=== PATIENT | male | born 1950 | race Caucasian/White ===

== ENCOUNTER 2021-12-21 14:45 | Emergency (ER) | payer MEDICARE, OTHER ==
[~2021-12-21] VITALS: Ht 172.7 cm; Wt 76.7 kg
[~2021-12-21 14:45] MED LIST: AVODART PO; IRON PO; MAGN400T8 PO; PANT40TA49 PO; PRIM50TA PO; ROSU5TAB PO; TAMS-3 PO; VENL150C2 PO
[2021-12-21] MEDS ORDERED: METF-442 PO (14:57)
--- NOTE | 2021-12-21 15:25 | NUR ---
at bedside to examine pt.
--- NOTE | 2021-12-21 15:47 | NUR ---
Pt's ear waxed removed by via irrigation and flush with NS, large chunks of stoned waxed removed from bilateral ears.
--- NOTE | 2021-12-21 15:54 | NUR ---
DCD instructions given to pt. and who remains at bedside., P. left room [id number]. ambulatory steady gait.
== END 2021-12-21 16:02 | disposition home or self-care (01) ==
LOC: ER 14:45
DX: H61.23 Impacted cerumen, bilateral (principal); E11.9 Type 2 diabetes mellitus without complications; Z79.84 Long term (current) use of oral hypoglycemic drugs; E78.5 Hyperlipidemia, unspecified; N40.0 Benign prostatic hyperplasia without lower urinary tract symptoms; Z79.899 Other long term (current) drug therapy; I25.2 Old myocardial infarction; I10 Essential (primary) hypertension
CPT/HCPCS: A4217; A4663

== ENCOUNTER 2022-11-12 14:12 | Inpatient (IN) | payer MEDICARE, OTHER ==
[~2022-11-12] VITALS: Ht 172.7 cm; Wt 73.5 kg
[~2022-11-12 14:12] MED LIST changes: -IRON PO; -MAGN400T8 PO; +METF-442 PO
[2022-11-12] MEDS ORDERED: ATEN25TA PO (14:44)
[2022-11-12] MEDS ORDERED: TIMO5SOL11 EACHEYE (14:44)
[2022-11-12] MEDS ORDERED: LAMO25TA10 PO (14:44)
[2022-11-12] MEDS ORDERED: LATA2.5D15 EACHEYE (14:44)
[2022-11-12] MEDS ORDERED: DUTA0.5C PO (14:44)
[2022-11-12] MEDS ORDERED: OLAN2.5T3 PO (14:44)
[2022-11-12] MEDS ORDERED: BENA20TA9 PO (14:44)
[2022-11-12] MEDS ORDERED: BUPR-53 PO (14:44)
[2022-11-12] MEDS ORDERED: CLOP75TA15 PO (14:44)
[2022-11-12] MEDS ORDERED: IV NORMAL SALINE 500 ML BAG IV ONE (14:45)
[2022-11-12 14:46] LABS: *BILIRUBIN,URIN NEGATIVE (NEGATIVE); *CLARITY,URINE CLEAR (CLEAR); *COLOR,URINE YELLOW (YELLOW); *KETONES,URINE NEGATIVE (NEGATIVE); *UROBILINOGEN,URINE 0.2 E.U./dl (NORMAL); LEUKOCYTE ESTERASE ,URINE NEGATIVE (NEGATIVE); NITRITE, URINE NEGATIVE (NEGATIVE); PH,URINE 5.5 (5.0-8.0); UGLUCOSE NEGATIVE (NEGATIVE)
[2022-11-12 15:01] LABS: HEMATOCRIT 39.5 % (36.7-47.1); MEAN CORPUSCULAR HEMOGLOBIN 24.8 uug (23.8-33.4); MEAN CORPUSCULAR VOLUME 77.4 fL (73.0-96.2); PLATELET COUNT (AUTO) 299 K/uL (152-348)
[2022-11-12 15:08] LABS: *BLOOD, URINE TRACE (NEGATIVE)
--- NOTE | 2022-11-12 15:10 | NUR ---
Pt's now stated pt tested postive for COVID-19 yesterday. Pt is in room 4A, started isolation precautioins per protocol, collected specimen for COVID and sent to lab.
[2022-11-12 15:12] LABS: ALANINE AMINOTRANSFERASE 36 U/L (16-63); ALKALINE PHOSPHATASE 74 U/L (50-136); BILIRUBIN,DIRECT 0.2 mg/dL (0.0-0.2); BILIRUBIN,TOTAL 0.4 mg/dL (0.2-1.0); CARBON DIOXIDE 24 mmol/L (21-32); CHLORIDE 99 mmol/L (98-107); CREATININE 1.6 mg/dL (0.6-1.3); GLUCOSE 84 mg/dL (74-106); POTASSIUM 4.1 mmol/L (3.5-5.1); UREA NITROGEN, BLOOD 27 mg/dL (7-18)
[2022-11-12 15:31] LABS: ASPARTATE AMINOTRANSFERASE 33 U/L (15-37); TOTAL PROTEIN, SERUM 7.9 g/dL (6.4-8.2)
--- NOTE | 2022-11-12 16:25 | NUR ---
Pt to be admitted to Tele, called for bed assignment. Pt resting in [facility] with NAD noted.
--- NOTE | 2022-11-12 17:00 | NUR ---
Pt. admitted to M/S , under care of Jordyn Thompson. Dx: Dehydration, COVID-19 Room changed to 322 Assigned nurse to call back for report
[2022-11-12] MEDS ORDERED: ONDANSETRON 4 MG/2 ML VIAL IV PRN (17:15)
[2022-11-12] MEDS ORDERED: INSULIN REGULAR, HUMAN 300 UNIT/3 ML VIAL SQ PRN (17:15)
[2022-11-12] MEDS ORDERED: ACETAMINOPHEN 325 MG TABLET PO PRN (17:15)
[2022-11-12] MEDS ORDERED: INSULIN REGULAR, HUMAN 300 UNITS/3 ML VIAL SQ PRN (17:15)
[2022-11-12] MEDS ORDERED: DEXTROSE 50% 50 ML DISP.SYRIN IV PRN (17:15)
--- NOTE | 2022-11-12 17:27 | NUR ---
Attempted to call report, nurse busy, to call back. Pt resting with NAD noted.
--- NOTE | 2022-11-12 18:00 | NUR ---
Pt trans to m/s floor room 322, NAD noted. Charge nurse aware of pt arrival, assigned nurse to call ER for report when ready.
[2022-11-12 18:14] VITALS: BP 126/63
--- NOTE | 2022-11-12 18:25 | NUR ---
PATIENT RECEIVED ON FLOOR. ALERT AND ABLE TO MAKE NEEDS KNOWN. DENIES PAIN. ORIENTED TTOROOM AND CALL [facility]. PATIENT IN COVID ISOLATION. NO DISCOMFORT NOTED. SIENA Stevens RN
[2022-11-12] MEDS ORDERED: TIMO5DRO18 EACHEYE (18:28)
[2022-11-12] MEDS ORDERED: BUPR-319 PO (18:30)
[2022-11-12] MEDS ORDERED: IV NS 1000 ML 1,000 ML IV ONE (18:45)
[2022-11-12 18:58] LABS: BACTERIA,URINE NONE SEEN /HPF (NONE SEEN); MUCUS,URINE FEW /LPF (0-FEW); SQUAMOUS EPITHELIAL CELL,UR FEW /HPF (NONE SEEN); WBC,URINE 0-3 /HPF (0-3)
[2022-11-12 20:00] VITALS: BP 140/77
[2022-11-12] MEDS: LATANOPROST OPHT DROP 2.5 ML BOTTLE EACHEYE SCH (21:07)
[2022-11-12] MEDS: PRIMIDONE 50 MG TABLET PO SCH (21:07)
[2022-11-12] MEDS: ATENOLOL 25 MG TABLET PO SCH (21:08)
[2022-11-12] MEDS: BLOOD SUGAR DIAGNOSTIC 1 EACH STRIP VI SCH (21:09)
[2022-11-12] MEDS: ATORVASTATIN 10 MG TABLET PO SCH (21:09)
--- NOTE | 2022-11-12 23:58 | NUR ---
PATIENT HAD NOT EATEN SINCE 0900, BS AT 2100 WAS 69, PATIENT ATE DINNER, BS WAS RE CHECK AND INCREASED TO 78.
[2022-11-13 04:00] VITALS: BP 130/58
--- NOTE | 2022-11-13 04:26 | NUR ---
LACTATE ACID RESULTS WERE 3.2, FELECIA HUERTA MADE AWARE NEW ORDER GIVEN TO RE CHECK LACTATE IN AM, BLOOD WORK SET FOR 0700
[2022-11-13] MEDS: PANTOPRAZOLE SODIUM 40 MG TABLET.DR PO SCH (06:08)
[2022-11-13 07:30] LABS: ALANINE AMINOTRANSFERASE 35 U/L (16-63); ALKALINE PHOSPHATASE 63 U/L (50-136); ASPARTATE AMINOTRANSFERASE 26 U/L (15-37); BILIRUBIN,TOTAL 0.4 mg/dL (0.2-1.0); CARBON DIOXIDE 28 mmol/L (21-32); CHLORIDE 99 mmol/L (98-107); CREATININE 1.4 mg/dL (0.6-1.3); GLUCOSE 100 mg/dL (74-106); MAGNESIUM 1.6 mg/dL (1.8-2.4); PHOSPHOROUS 3.4 mg/dL (2.5-4.9); POTASSIUM 4.2 mmol/L (3.5-5.1); TOTAL PROTEIN, SERUM 7.2 g/dL (6.4-8.2); UREA NITROGEN, BLOOD 28 mg/dL (7-18)
[2022-11-13 07:38] LABS: HEMATOCRIT 37.6 % (36.7-47.1); MEAN CORPUSCULAR HEMOGLOBIN 24.7 uug (23.8-33.4); MEAN CORPUSCULAR VOLUME 76.6 fL (73.0-96.2); PLATELET COUNT (AUTO) 261 K/uL (152-348)
[2022-11-13] MEDS: BLOOD SUGAR DIAGNOSTIC 1 EACH STRIP VI SCH ×4 (07:49→20:40)
[2022-11-13 08:46] LABS: THYROID STIMULATING HORMONE 2.491 mIU/mL (0.358-3.740)
[2022-11-13] MEDS ORDERED: TAMSULOSIN HCL 0.4 MG CAP.SR.24H PO SCH (09:00)
[2022-11-13] MEDS ORDERED: TIMOLOL MALEATE XE 0.5% OPHT 5 ML BOTTLE EACHEYE SCH (09:00)
[2022-11-13] MEDS: LAMOTRIGINE 25 MG TABLET PO SCH ×2 (09:04→17:08)
[2022-11-13] MEDS: CLOPIDOGREL 75 MG TABLET PO SCH (09:04)
[2022-11-13] MEDS: DUTASTERIDE 0.5 MG CAPSULE PO SCH (09:04)
[2022-11-13] MEDS: BENAZEPRIL HCL 20 MG TABLET PO SCH (09:05)
[2022-11-13] MEDS: METFORMIN HCL 500 MG TABLET PO SCH ×2 (09:05→17:13)
[2022-11-13] MEDS: TIMOLOL MALEATE 0.5% OPHT DROP 5 ML BOTTLE EACHEYE SCH (09:06)
[2022-11-13] MEDS: VENLAFAXINE XR 150 MG CAP.SR.24H PO SCH (09:06)
--- NOTE | 2022-11-13 09:30 | NUR ---
DR NEIL HERE AND SEEN PATIENT WITH NEW ORDERS AND NOTED
[2022-11-13] MEDS: ATENOLOL 25 MG TABLET PO SCH ×2 (09:54→20:24)
[2022-11-13] MEDS ORDERED: MAGNESIUM OXIDE 400 MG TABLET PO ONE (10:30)
--- NOTE | 2022-11-13 10:30 | NUR ---
MAGNESIUM LEVEL IS 1.6 WITH NEW REPLACEMENT ORDERS AND NOTED.
[2022-11-13 11:46] VITALS: BP 140/81
--- NOTE | 2022-11-13 12:40 | NUR ---
BLOOD SUGAR IS 68 AT THIS TIME HE IS SITTING ON HIS BED TALKING ON THE PHONE TO HIS FAMILY SKIN IS WARM AND DRY OFFERED ORANGE JUICE AND HE DRANK 3 OZ LUNCH SERVED AND HE IS EATING WILL CONTINUE TO OBSERVE.
[2022-11-13 16:35] VITALS: BP 122/65
[2022-11-13] MEDS: OLANZAPINE 2.5 MG TABLET PO SCH (17:08)
--- NOTE | 2022-11-13 17:18 | NUR ---
PATIENT PULLED OUT HIS HEPLOCK RIGHT AC DESPITE THE FACT THAT ITS WRAPPED WHEN ASKED WHAT HAPPENED STATED THAT HE DID NOT KNOW WHO REMOVED IT PATIENT IS MIXED UP STATED DOES NOT NEED ONE.HE DOES NOT HAVE IV DRUGS SO WILL HOLD OFF ON REINSERTING HE MIGHT PULL OUT AGAIN WILL ENDORSE.
--- NOTE | 2022-11-13 17:20 | NUR ---
REMAIN ON CONTACT ISOLATION AND PRECAUTION FOR COVID 19 PATIENT IS ON ROOM AIR NO COUGH EPISODES AFEBRILE AT THIS TIME COMPLIANT WITH ALL HIS MEDICATIONS WILL CONTINUE TO OBSERVE.
--- NOTE | 2022-11-13 19:40 | NUR ---
Received Pt from Day shift. Pt is A&Ox3 and is cooperative. Pt on Rm Air. Pt has no IV site due to him pulling out the IV. Safety measures in place. Will continue to monitor.
[2022-11-13 20:00] VITALS: BP 92/59
[2022-11-13] MEDS: PRIMIDONE 50 MG TABLET PO SCH (20:29)
[2022-11-13] MEDS: ATORVASTATIN 10 MG TABLET PO SCH (20:29)
[2022-11-13] MEDS: LATANOPROST OPHT DROP 2.5 ML BOTTLE EACHEYE SCH (20:30)
--- NOTE | 2022-11-13 21:44 | NUR ---
Did not administer atenolol as BP was 92/59. Safety measures in place. Will continue to monitor.
[2022-11-14 04:00] VITALS: BP 117/74
[2022-11-14] MEDS: PANTOPRAZOLE SODIUM 40 MG TABLET.DR PO SCH (06:23)
[2022-11-14 06:57] LABS: HEMATOCRIT 38.7 % (36.7-47.1); MEAN CORPUSCULAR HEMOGLOBIN 24.7 uug (23.8-33.4); MEAN CORPUSCULAR VOLUME 76.9 fL (73.0-96.2); PLATELET COUNT (AUTO) 278 K/uL (152-348)
--- NOTE | 2022-11-14 06:58 | NUR ---
End of shift Note: Pt is A&Ox3 and is cooperative. Pt on Rm Air. Pt has no IV site due to him pulling out the IV. Safety measures in place. Will continue to monitor.
[2022-11-14 07:23] LABS: ALANINE AMINOTRANSFERASE 32 U/L (16-63); ALKALINE PHOSPHATASE 71 U/L (50-136); ASPARTATE AMINOTRANSFERASE 17 U/L (15-37); BILIRUBIN,TOTAL 0.4 mg/dL (0.2-1.0); CARBON DIOXIDE 28 mmol/L (21-32); CHLORIDE 100 mmol/L (98-107); CREATININE 1.4 mg/dL (0.6-1.3); GLUCOSE 100 mg/dL (74-106); MAGNESIUM 1.7 mg/dL (1.8-2.4); PHOSPHOROUS 3.7 mg/dL (2.5-4.9); POTASSIUM 3.9 mmol/L (3.5-5.1); TOTAL PROTEIN, SERUM 7.5 g/dL (6.4-8.2); UREA NITROGEN, BLOOD 22 mg/dL (7-18)
[2022-11-14] MEDS: BLOOD SUGAR DIAGNOSTIC 1 EACH STRIP VI SCH ×3 (07:50→18:08)
--- NOTE | 2022-11-14 07:51 | NUR ---
PER REPORT FROM IRENA ONEAL RN, PATIENT'S BLOOD SUGAR IS 91. NO INSULIN COVERAGE NEEDED AT THIS TIME.
[2022-11-14] MEDS ORDERED: MAGNESIUM OXIDE 400 MG TABLET PO ONE (10:30)
[2022-11-14] MEDS: DUTASTERIDE 0.5 MG CAPSULE PO SCH (10:31)
[2022-11-14] MEDS: LAMOTRIGINE 25 MG TABLET PO SCH ×2 (10:31→18:01)
[2022-11-14] MEDS: METFORMIN HCL 500 MG TABLET PO SCH ×2 (10:31→18:01)
[2022-11-14] MEDS: CLOPIDOGREL 75 MG TABLET PO SCH (10:31)
[2022-11-14] MEDS: OLANZAPINE 2.5 MG TABLET PO SCH ×2 (10:32→18:02)
[2022-11-14] MEDS: BENAZEPRIL HCL 20 MG TABLET PO SCH (10:32)
[2022-11-14] MEDS: ATENOLOL 25 MG TABLET PO SCH (10:32)
[2022-11-14] MEDS: VENLAFAXINE XR 150 MG CAP.SR.24H PO SCH (10:33)
[2022-11-14] MEDS: TIMOLOL MALEATE 0.5% OPHT DROP 5 ML BOTTLE EACHEYE SCH (10:33)
[2022-11-14 11:31] VITALS: BP 132/62
[2022-11-14 15:43] VITALS: BP 116/85
--- NOTE | 2022-11-14 19:22 | NUR ---
RECEIVED REPORT FROM IRENA ONEAL RN. PATIENT IS ALERT AND ORIENTED X 3-4, AND ABLE TO SPEAK [place]. VITAL SIGNS STABLE. PATIENT TOLERATES PO MEDICATIONS AND DIET WELL. PATIENT VOIDS. PATIENT ENCOURAGED TO DRINK FLUIDS. FALL PRECAUTIONS OBSERVED. NO ACUTE DISTRESS NOTED. PER MD ORDER, PATIENT TO BE DISCHARGE TODAY AND ISOLATE AT HOME. PATIENT AGREEABLE TO DISCHARGE. ALL BELONGINGS ACCOUNTED FOR. BELONGINGS LIST SIGNED. RN PROVIDED DISCHARGE TEACHING TO FAMILY. ALL QUESTIONS AND CONCERNS ANSWERED. DISCHARGE TEACHING PAPERWORK SIGNED. PATIENT DISCHARGED IN STABLE CONDITION TO DAUGHTER & . VERENICE THOMAS, WHEELED PATIENT DOWN.
[2022-11-14] MEDS ORDERED: TAMSULOSIN HCL 0.4 MG CAP.SR.24H PO SCH (21:00)
== END 2022-11-14 19:14 | disposition home or self-care (01) | DRG 177 ==
LOC: ER 14:12 → TELE3 17:09 → MEDSURG3 17:55
PROVIDERS: ADMIT Registered Nurse; ATTEND Registered Nurse
DX: U07.1 COVID-19 (principal); G92.8 Other toxic encephalopathy; J12.82 Pneumonia due to coronavirus disease 2019; E87.1 Hypo-osmolality and hyponatremia; E87.20 Acidosis, unspecified; N17.9 Acute kidney failure, unspecified; E86.0 Dehydration; E86.1 Hypovolemia; F32.A Depression, unspecified; E11.22 Type 2 diabetes mellitus with diabetic chronic kidney disease; I25.2 Old myocardial infarction; F41.9 Anxiety disorder, unspecified; I25.10 Atherosclerotic heart disease of native coronary artery without angina pectoris; K21.9 Gastro-esophageal reflux disease without esophagitis; R29.6 Repeated falls; K29.60 Other gastritis without bleeding; N18.9 Chronic kidney disease, unspecified; Z87.442 Personal history of urinary calculi; N40.0 Benign prostatic hyperplasia without lower urinary tract symptoms; R53.1 Weakness; Z79.84 Long term (current) use of oral hypoglycemic drugs; I12.9 Hypertensive chronic kidney disease with stage 1 through stage 4 chronic kidney disease, or unspecified chronic kidney disease
CPT/HCPCS: 36415; 70450; 71045; 83605; 83735; 84100; 84443; 84484; 85025; 85730; 87040; 93005; A4663; G0378; J1815; J7040

== ENCOUNTER 2025-06-03 09:50 | Inpatient (IN) | payer MEDICARE, BC ==
[~2025-06-03] VITALS: Ht 172.7 cm; Wt 81.6 kg
[~2025-06-03 09:50] MED LIST changes: +ATEN25TA PO; -AVODART PO; +BENA20TA9 PO; +BUPR-319 PO; +CLOP75TA15 PO; +DUTA0.5C PO; +LAMO25TA10 PO; +LATA2.5D15 EACHEYE; +OLAN2.5T3 PO; +TIMO5DRO18 EACHEYE
[2025-06-03 10:22] LABS: PLATELET COUNT (AUTO) 178 K/uL (152-348); RED BLOOD CELL COUNT(AUTO) 4.92 MIL/uL (4.06-5.63); RED CELL DISTRIBUTION WIDTH 14.1 % (12.1-16.2); WHITE BLOOD COUNT (AUTO) 6.3 K/uL (3.6-10.2)
[2025-06-03 10:31] LABS: CREATININE 1.6 mg/dL (0.6-1.3); SODIUM SERUM 142 mmol/L (136-145); UREA NITROGEN, BLOOD 21 mg/dL (7-18)
[2025-06-03 10:36] LABS: ASPARTATE AMINOTRANSFERASE 12 U/L (15-37); TOTAL PROTEIN, SERUM 7.4 g/dL (6.4-8.2)
[2025-06-03] MEDS ORDERED: ACETAMINOPHEN 325 MG TABLET PO PRN (11:45)
[2025-06-03] MEDS ORDERED: REMEDY ESSENTIAL ZINC PASTE 113 GM TP PRN (11:45)
[2025-06-03] MEDS ORDERED: ONDANSETRON 4 MG/2 ML VIAL IV PRN (11:45)
[2025-06-03] MEDS ORDERED: MAGNESIUM HYDROXIDE 30 ML LIQUID UDC PO PRN (11:45)
[2025-06-03 11:46] LABS: *BILIRUBIN,URIN NEGATIVE (NEGATIVE); *BLOOD, URINE NEGATIVE (NEGATIVE); *CLARITY,URINE CLEAR (CLEAR); *COLOR,URINE YELLOW (YELLOW); *KETONES,URINE NEGATIVE (NEGATIVE); *PROTEIN,URINE NEGATIVE (NEGATIVE); *UROBILINOGEN,URINE 0.2 E.U./dl (NORMAL); LEUKOCYTE ESTERASE ,URINE NEGATIVE (NEGATIVE); NITRITE, URINE NEGATIVE (NEGATIVE); UGLUCOSE NEGATIVE (NEGATIVE)
[2025-06-03] MEDS ORDERED: IOHEXOL 350 100 ML INFUS..BTL ONE (12:08)
[2025-06-03 14:06] VITALS: BP 146/86
[2025-06-03 15:47] VITALS: BP 148/79; TEMP 97.7; O2SAT 96
[2025-06-03] MEDS ORDERED: LAMOTRIGINE 25 MG TABLET PO SCH (17:00)
[2025-06-03] MEDS: OLANZAPINE 2.5 MG TABLET PO SCH (17:54)
[2025-06-03 20:07] VITALS: BP 110/72; TEMP 97.9; O2SAT 96
[2025-06-03] MEDS: LATANOPROST OPHT DROP 2.5 ML BOTTLE EACHEYE SCH (21:04)
[2025-06-03] MEDS: ATORVASTATIN 10 MG TABLET PO SCH (21:04)
[2025-06-03] MEDS: ATENOLOL 25 MG TABLET PO SCH (21:09)
[2025-06-03] MEDS: HEPARIN SODIUM,PORCINE 5,000 UNITS/ML VIAL SQ SCH (21:12)
[2025-06-03] MEDS: IV 1/2NS 1000 ML 1,000 ML IV PRN (22:37)
[2025-06-04 00:07] VITALS: BP 110/58; TEMP 97.9; O2SAT 95
[2025-06-04 04:50] VITALS: BP 126/54; TEMP 98.1; O2SAT 98
[2025-06-04] MEDS: PANTOPRAZOLE SODIUM 40 MG TABLET.DR PO SCH (06:26)
[2025-06-04 07:20] LABS: PLATELET COUNT (AUTO) 191 K/uL (152-348); RED BLOOD CELL COUNT(AUTO) 5.07 MIL/uL (4.06-5.63); RED CELL DISTRIBUTION WIDTH 14.1 % (12.1-16.2); WHITE BLOOD COUNT (AUTO) 6.3 K/uL (3.6-10.2)
[2025-06-04 07:53] LABS: CREATININE 1.6 mg/dL (0.6-1.3); SODIUM SERUM 137 mmol/L (136-145); UREA NITROGEN, BLOOD 20 mg/dL (7-18)
[2025-06-04 08:35] VITALS: BP 138/80; TEMP 98.1; O2SAT 98
[2025-06-04] MEDS: CLOPIDOGREL 75 MG TABLET PO SCH (08:42)
[2025-06-04] MEDS: DUTASTERIDE 0.5 MG CAPSULE PO SCH (08:42)
[2025-06-04] MEDS: buPROPion XL 150 MG TAB.SR.24H PO SCH (08:42)
[2025-06-04] MEDS: TIMOLOL MALEATE 0.5% OPHT DROP 5 ML BOTTLE EACHEYE SCH (08:43)
[2025-06-04] MEDS ORDERED: VENLAFAXINE XR 150 MG CAP.SR.24H PO SCH (09:00)
[2025-06-04 11:11] VITALS: BP 132/77; TEMP 98.4; O2SAT 96
[2025-06-04] MEDS ORDERED: TAMSULOSIN HCL 0.4 MG CAP.SR.24H PO SCH (21:00)
== END 2025-06-04 11:50 | disposition home or self-care (01) | DRG 313 ==
LOC: ER 09:50 → TELE3 15:11
PROVIDERS: ADMIT Student in an Organized Health Care Education/Training Program; ATTEND Student in an Organized Health Care Education/Training Program
DX: R07.89 Other chest pain (principal); N17.0 Acute kidney failure with tubular necrosis; M48.54XA Collapsed vertebra, not elsewhere classified, thoracic region, initial encounter for fracture; I25.2 Old myocardial infarction; Z95.5 Presence of coronary angioplasty implant and graft; R91.1 Solitary pulmonary nodule; R91.8 Other nonspecific abnormal finding of lung field; Z79.02 Long term (current) use of antithrombotics/antiplatelets; K29.60 Other gastritis without bleeding; Z87.11 Personal history of peptic ulcer disease; K21.9 Gastro-esophageal reflux disease without esophagitis; F32.A Depression, unspecified; F41.9 Anxiety disorder, unspecified; R25.1 Tremor, unspecified; I12.9 Hypertensive chronic kidney disease with stage 1 through stage 4 chronic kidney disease, or unspecified chronic kidney disease; N18.9 Chronic kidney disease, unspecified; I25.10 Atherosclerotic heart disease of native coronary artery without angina pectoris; N40.0 Benign prostatic hyperplasia without lower urinary tract symptoms; Z79.84 Long term (current) use of oral hypoglycemic drugs; Z79.899 Other long term (current) drug therapy; Z87.442 Personal history of urinary calculi; E11.22 Type 2 diabetes mellitus with diabetic chronic kidney disease; Z87.891 Personal history of nicotine dependence
CPT/HCPCS: 36415; 71045; 71275; 83735; 84100; 84443; 84484; 85025; 85730; A4606; A4663; G0378; J1644; Q9967

== ENCOUNTER 2025-06-16 14:48 | Emergency (ER) | payer MEDICARE, BC ==
[~2025-06-16] VITALS: Ht 172.7 cm; Wt 83.5 kg
[2025-06-16 15:04] VITALS: BP 152/91
[2025-06-16 15:35] LABS: *BILIRUBIN,URIN NEGATIVE (NEGATIVE); *BLOOD, URINE NEGATIVE (NEGATIVE); *CLARITY,URINE CLEAR (CLEAR); *COLOR,URINE YELLOW (YELLOW); *KETONES,URINE TRACE (NEGATIVE); *PROTEIN,URINE NEGATIVE (NEGATIVE); *UROBILINOGEN,URINE 0.2 E.U./dl (NORMAL); LEUKOCYTE ESTERASE ,URINE NEGATIVE (NEGATIVE); NITRITE, URINE NEGATIVE (NEGATIVE); UGLUCOSE NEGATIVE (NEGATIVE)
[2025-06-16 15:42] LABS: SQUAMOUS EPITHELIAL CELL,UR FEW /HPF (NONE SEEN)
[2025-06-16 15:53] VITALS: BP 148/86; TEMP 97.8; O2SAT 99
== END 2025-06-16 15:52 | disposition home or self-care (01) ==
LOC: ER 14:55
DX: I13.10 Hypertensive heart and chronic kidney disease without heart failure, with stage 1 through stage 4 chronic kidney disease, or unspecified chronic kidney disease (principal); E11.22 Type 2 diabetes mellitus with diabetic chronic kidney disease; N18.9 Chronic kidney disease, unspecified; F32.A Depression, unspecified; Z79.02 Long term (current) use of antithrombotics/antiplatelets; Z79.84 Long term (current) use of oral hypoglycemic drugs; Z79.899 Other long term (current) drug therapy; Z88.7 Allergy status to serum and vaccine; Z87.448 Personal history of other diseases of urinary system; Z87.438 Personal history of other diseases of male genital organs
CPT/HCPCS: A4606; A4663